=== PATIENT | female | born 1950 | race Caucasian/White ===

== ENCOUNTER → 2017-05-14 | Outpatient (CLI) | payer BC, MEDICARE ==
--- NOTE | 2017-05-14 11:02 | MM ---
Reason for exam: clinical finding. Last mammogram was performed 2 years and 5 months ago. History: Patient is postmenopausal. Family history of breast cancer in maternal aunt. Took hormonal contraceptives for 10 years. Physical Findings: Nurse did not find any significant physical abnormalities on exam. MG 3D Diag Mammo W/Cad NICOLAS Bilateral CC and MLO view(s) were taken. Prior study comparison: December 06, 2014, bilateral MG screening mammo w CAD. June 01, 2013, bilateral digital screening mammo w/CAD. The breast tissue is heterogeneously dense. This may lower the sensitivity of mammography. Stable benign calcifications. There is chronic nodularity bilaterally. There is no dominant lesion. No significant new findings when compared with previous films. These results were verbally communicated with the patient and result sheet given to the patient on 05/14/17. ASSESSMENT: Benign, BI-RAD 2 RECOMMENDATION: Routine screening mammogram of both breasts in 1 year. Manage patient on a clinical basis.
== END | disposition home or self-care (01) ==
LOC: RADMAMWWP 09:58
PROVIDERS: ATTEND Obstetrics & Gynecology
DX: N64.4 Mastodynia (principal)
CPT/HCPCS: G0204; G0279

== ENCOUNTER → 2019-01-29 | Outpatient (CLI) | payer MEDICARE ==
--- NOTE | 2019-01-29 17:25 | US ---
EXAMINATION TYPE: US kidneys/renal and bladder DATE OF EXAM: 01/29/2019 COMPARISON: NONE CLINICAL HISTORY: R31.21 Microscopic hematuria. Hematuria EXAM MEASUREMENTS: Right Kidney: 11.0 x 5.1 x 5.0 cm Left Kidney: 11.9 x 6.3 x 4.5 cm Right Kidney: no hydronephrosis or masses seen Left Kidney: no hydronephrosis or masses seen Bladder: wnl Bilateral Jets seen: no There is no evidence for hydronephrosis at this point in time. No nephrolithiasis is seen. No deshawn s are identified. The urinary bladder is anechoic. Bilateral ureteral jets are not seen. IMPRESSION: No hydronephrosis or nephrolithiasis. Focal renal masses seen.
== END | disposition home or self-care (01) ==
LOC: RADUSWWP 15:10
PROVIDERS: ATTEND Family Medicine
DX: R31.21 Asymptomatic microscopic hematuria (principal)
CPT/HCPCS: 76770

== ENCOUNTER 2020-10-22 18:18 | Inpatient (IN) | payer MEDICARE ==
--- NOTE | 2020-10-22 18:58 | ED ---
General Adult HPI - General Chief complaint: Shortness of Breath Stated complaint: Low oxygen, elevated heart rate, from [facility] Time Seen by Provider: 10/22/20 18:42 Source: patient Mode of arrival: wheelchair Limitations: no limitations - History of Present Illness Initial comments: Dictation was produced using [employer] dictation software. please excuse any grammatical, word or spelling errors. This patient was cared for during a federal and state declared state of emergency secondary to Covid 19 Chief Complaint: 69-year-old female redirected from [facility] for hypoxia History of Present Illness: Patient is a 69-year-old female she presents to us with hypoxia from the [facility] breast. Patient states that she was at the [employer] [facility] in order to get a Covid testicle back to [place] where her resides. Patient states she's been short of breath for the last week or so. She states that she's been having swelling in her lower legs. She does feel slightly worse with lying flat. She does complain of some mild cough. She states she has COPD but she does not know how severe patient does not wear any home O2. She has had some chills but no fevers or other constitutional symptoms. Denies any history of cardiac disease. She had noted some swelling in her bilateral lower extremities worse on the right compared to the left The ROS documented in this emergency department record has been reviewed and confirmed by me. Those systems with pertinent positive or negative responses have been documented in the HPI. All other systems are other negative and/or noncontributory. PHYSICAL EXAM: General Impression: Alert and oriented x3, not in acute distress HEENT: Normocephalic atraumatic, extra-ocular movements intact, pupils equal and reactive to light bilaterally, mucous membranes moist. Cardiovascular: Heart regular rate and rhythm Chest: Able to complete full sentences, no retractions, no tachypnea, diffuse lung crackles with auscultation of the lungs Abdomen: abdomen soft, non-tender, non-distended, no organomegaly Musculoskeletal: Pulses present and equal in all extremities, 2+ pitting edema to bilateral lower extremities Motor: no focal deficits noted Neurological: CN II-XII grossly intact, no focal motor or sensory deficits noted Skin: Intact with no visualized rashes Psych: Normal affect and mood ED course: 69-year-old female with hypoxia. Vital signs upon arrival shows 80% on room air, rest of vital signs within acceptable limits. . Laboratory evaluation obtained. CBC is 11 7.2. No leukocytosis. Coag panel is negative. D-dimer shows level of 0.43. A care blood gas shows pCO2 of 65 with 86% pO2 on 3 L nasal cannula. Patient is retaining CO2 likely from undiagnosed COPD. Metabolic panel is unremarkable. Coronavirus test is negative. Patient persistently hypoxic at bedside. CT angios the chest was obtained showing mild pericardial effusion with no evidence of PE. Mild interstitial infiltrate at the lung bases. Clinical presentation is suspicious for pneumonia and she is given azithromycin and ceftriaxone. Patient be continued on oxygen therapy. Patient will be admitted. Case discussed with Dr. Valentin who is willing to accept patients care. Pulmonology been consulted. EKG interpretation: Ventricular rate 90, normal sinus rhythm, SD interval 150, QRS 70, QTC 426. No SD prolongation, no QTC prolongation, no ST or T-wave changes noted. No old EKG for comparison Overall, this EKG is unremarkable - Related Data Home Medications Medication Instructions Recorded Confirmed Cetirizine HCl [Zyrtec] 10 mg PO PC-SUPPER 10/22/20 10/22/20 Allergies Allergy/AdvReac Type Severity Reaction Status Date / Time aspirin Allergy Anaphylaxis Verified 10/22/20 20:28 Review of Systems ROS Statement: Those systems with pertinent positive or pertinent negative responses have been documented in the HPI. ROS Other: All systems not noted in ROS Statement are negative. Past Medical History Past Medical History: No Reported History History of Any Multi-Drug Resistant Organisms: None Reported Past Surgical History: Appendectomy, Cholecystectomy, Orthopedic Surgery Past Psychological History: No Psychological Hx Reported Smoking Status: Former smoker Past Alcohol Use History: None Reported Past Drug Use History: None Reported General Exam Limitations: no limitations Course Vital Signs 10/22/20 10/22/20 10/22/20 18:35 19:20 19:30 Temperature 98.4 F Pulse Rate 99 91 90 Respiratory 16 32 H 20 Rate Blood Pressure 153/85 140/80 147/86 O2 Sat by Pulse 88 L 97 100 Oximetry 10/22/20 10/22/20 10/22/20 19:40 19:42 20:00 Temperature Pulse Rate 87 84 Respiratory 24 20 22 Rate Blood Pressure 147/86 146/90 O2 Sat by Pulse 100 100 Oximetry 10/22/20 21:34 Temperature Pulse Rate 89 Respiratory 20 Rate Blood Pressure 139/77 O2 Sat by Pulse 99 Oximetry Medical Decision Making - Lab Data Result diagrams: 10/22/20 19:06 10/22/20 19:06 Lab Results 10/22/20 10/22/20 10/22/20 Range/Units 19:06 19:06 19:06 WBC 8.3 (3.8-10.6) k/uL RBC 5.46 H (3.80-5.40) m/uL Hgb 17.2 H (11.4-16.0) gm/dL Hct 52.4 H (34.0-46.0) % MCV 95.9 (80.0-100.0) fL MCH 31.4 (25.0-35.0) pg MCHC 32.8 (31.0-37.0) g/dL RDW 12.9 (11.5-15.5) % Plt Count 271 (150-450) k/uL MPV 7.5 Neutrophils % 62 % Lymphocytes % 28 % Monocytes % 7 % Eosinophils % 2 % Basophils % 1 % Neutrophils # 5.1 (1.3-7.7) k/uL Lymphocytes # 2.3 (1.0-4.8) k/uL Monocytes # 0.5 (0-1.0) k/uL Eosinophils # 0.2 (0-0.7) k/uL Basophils # 0.0 (0-0.2) k/uL PT 11.4 (9.0-12.0) sec INR 1.1 (<1.2) APTT 24.0 (22.0-30.0) sec D-Dimer 0.43 (<0.60) mg/L FEU Sample Site ABG pH (7.35-7.45) ABG pCO2 (35-45) mmHg ABG pO2 (83-108) mmHg ABG HCO3 (21-25) mmol/L ABG Total CO2 (19-24) mmol/L ABG O2 Saturation (94-97) % ABG Base Excess mmol/L Olegario Test VBG pH (7.31-7.41) VBG pCO2 (37-51) mmHg VBG HCO3 (24-28) mmol/L FiO2 % Sodium 138 (137-145) mmol/L Potassium 4.8 (3.5-5.1) mmol/L Chloride 95 L (98-107) mmol/L Carbon Dioxide 35 H (22-30) mmol/L Anion Gap 8 mmol/L BUN 11 (7-17) mg/dL Creatinine 0.35 L (0.52-1.04) mg/dL Est GFR (CKD-EPI)AfAm >90 (>60 ml/min/1.73 sqM) Est GFR (CKD-EPI)NonAf >90 (>60 ml/min/1.73 sqM) Glucose 108 H (74-99) mg/dL Plasma Lactic Acid Harlan (0.7-2.0) mmol/L Calcium 9.2 (8.4-10.2) mg/dL Magnesium 2.0 (1.6-2.3) mg/dL Total Bilirubin 1.0 (0.2-1.3) mg/dL AST 38 H (14-36) U/L ALT 28 (4-34) U/L Alkaline Phosphatase 99 (38-126) U/L Troponin I (0.000-0.034) ng/mL NT-Pro-B Natriuret Pep pg/mL Total Protein 7.5 (6.3-8.2) g/dL Albumin 4.4 (3.5-5.0) g/dL Coronavirus (PCR) (Not Detectd) 10/22/20 10/22/20 10/22/20 Range/Units 19:06 19:06 19:06 WBC (3.8-10.6) k/uL RBC (3.80-5.40) m/uL Hgb (11.4-16.0) gm/dL Hct (34.0-46.0) % MCV (80.0-100.0) fL MCH (25.0-35.0) pg MCHC (31.0-37.0) g/dL RDW (11.5-15.5) % Plt Count (150-450) k/uL MPV Neutrophils % % Lymphocytes % % Monocytes % % Eosinophils % % Basophils % % Neutrophils # (1.3-7.7) k/uL Lymphocytes # (1.0-4.8) k/uL Monocytes # (0-1.0) k/uL Eosinophils # (0-0.7) k/uL Basophils # (0-0.2) k/uL PT (9.0-12.0) sec INR (<1.2) APTT (22.0-30.0) sec D-Dimer (<0.60) mg/L FEU Sample Site ABG pH (7.35-7.45) ABG pCO2 (35-45) mmHg ABG pO2 (83-108) mmHg ABG HCO3 (21-25) mmol/L ABG Total CO2 (19-24) mmol/L ABG O2 Saturation (94-97) % ABG Base Excess mmol/L Olegario Test VBG pH (7.31-7.41) VBG pCO2 (37-51) mmHg VBG HCO3 (24-28) mmol/L FiO2 % Sodium (137-145) mmol/L Potassium (3.5-5.1) mmol/L Chloride (98-107) mmol/L Carbon Dioxide (22-30) mmol/L Anion Gap mmol/L BUN (7-17) mg/dL Creatinine (0.52-1.04) mg/dL Est GFR (CKD-EPI)AfAm (>60 ml/min/1.73 sqM) Est GFR (CKD-EPI)NonAf (>60 ml/min/1.73 sqM) Glucose (74-99) mg/dL Plasma Lactic Acid Harlan 1.3 (0.7-2.0) mmol/L Calcium (8.4-10.2) mg/dL Magnesium (1.6-2.3) mg/dL Total Bilirubin (0.2-1.3) mg/dL AST (14-36) U/L ALT (4-34) U/L Alkaline Phosphatase (38-126) U/L Troponin I <0.012 (0.000-0.034) ng/mL NT-Pro-B Natriuret Pep 65 pg/mL Total Protein (6.3-8.2) g/dL Albumin (3.5-5.0) g/dL Coronavirus (PCR) (Not Detectd) 10/22/20 10/22/20 10/22/20 Range/Units 19:41 19:41 21:00 WBC (3.8-10.6) k/uL RBC (3.80-5.40) m/uL Hgb (11.4-16.0) gm/dL Hct (34.0-46.0) % MCV (80.0-100.0) fL MCH (25.0-35.0) pg MCHC (31.0-37.0) g/dL RDW (11.5-15.5) % Plt Count (150-450) k/uL MPV Neutrophils % % Lymphocytes % % Monocytes % % Eosinophils % % Basophils % % Neutrophils # (1.3-7.7) k/uL Lymphocytes # (1.0-4.8) k/uL Monocytes # (0-1.0) k/uL Eosinophils # (0-0.7) k/uL Basophils # (0-0.2) k/uL PT (9.0-12.0) sec INR (<1.2) APTT (22.0-30.0) sec D-Dimer (<0.60) mg/L FEU Sample Site Left Radial ABG pH 7.37 (7.35-7.45) ABG pCO2 65 H (35-45) mmHg ABG pO2 86 (83-108) mmHg ABG HCO3 37 H (21-25) mmol/L ABG Total CO2 39 H (19-24) mmol/L ABG O2 Saturation 96.0 (94-97) % ABG Base Excess 11.9 mmol/L Olegario Test Yes VBG pH 7.40 (7.31-7.41) VBG pCO2 54 H (37-51) mmHg VBG HCO3 33 H (24-28) mmol/L FiO2 32 % Sodium (137-145) mmol/L Potassium (3.5-5.1) mmol/L Chloride (98-107) mmol/L Carbon Dioxide (22-30) mmol/L Anion Gap mmol/L BUN (7-17) mg/dL Creatinine (0.52-1.04) mg/dL Est GFR (CKD-EPI)AfAm (>60 ml/min/1.73 sqM) Est GFR (CKD-EPI)NonAf (>60 ml/min/1.73 sqM) Glucose (74-99) mg/dL Plasma Lactic Acid Harlan (0.7-2.0) mmol/L Calcium (8.4-10.2) mg/dL Magnesium (1.6-2.3) mg/dL Total Bilirubin (0.2-1.3) mg/dL AST (14-36) U/L ALT (4-34) U/L Alkaline Phosphatase (38-126) U/L Troponin I (0.000-0.034) ng/mL NT-Pro-B Natriuret Pep pg/mL Total Protein (6.3-8.2) g/dL Albumin (3.5-5.0) g/dL Coronavirus (PCR) Not Detected (Not Detectd) Disposition Clinical Impression: Acute respiratory failure with hypoxia Disposition: ADMITTED IP TO THIS HOSP Condition: Fair Referrals: Michael De La Fuente MD [Primary Care Provider] - 1-2 days Decision Time: 22:09
[2020-10-22 19:24] LABS: Basophils % (A) 1 %; Eosinophils # (A) 0.2 k/uL (0-0.7); Eosinophils % (A) 2 %; HCT 52.4 % (34.0-46.0); HGB 17.2 gm/dL (11.4-16.0); Lymphocytes # (A) 2.3 k/uL (1.0-4.8); Lymphocytes % (A) 28 %; MCH 31.4 pg (25.0-35.0); MCHC 32.8 g/dL (31.0-37.0); MCV 95.9 fL (80.0-100.0); Mean Platelet Volume 7.5; Monocytes # (A) 0.5 k/uL (0-1.0); Monocytes % (A) 7 %; Neutrophils # (A) 5.1 k/uL (1.3-7.7); Neutrophils % (A) 62 %; Platelet Count 271 k/uL (150-450); RBC 5.46 m/uL (3.80-5.40); RDW 12.9 % (11.5-15.5); WBC 8.3 k/uL (3.8-10.6)
--- NOTE | 2020-10-22 19:25 | XR ---
EXAMINATION TYPE: XR chest 1V portable DATE OF EXAM: 10/22/2020 COMPARISON: NONE HISTORY: Short of breath TECHNIQUE: Single view FINDINGS: Heart is enlarged. There is no gross heart failure. There is some atelectasis in the left m idlung. There is no definite pleural effusion. There are chest leads. IMPRESSION: Mild atelectasis in the left midlung.
[2020-10-22 19:41] LABS: ALT 28 U/L (4-34); AST 38 U/L (14-36); African American GFR (CKD) >90 (>60 ml/min/1.73 sqM); Albumin 4.4 g/dL (3.5-5.0); Alkaline Phosphatase 99 U/L (38-126); Anion Gap 8 mmol/L; Blood Urea Nitrogen 11 mg/dL (7-17); Calcium 9.2 mg/dL (8.4-10.2); Carbon Dioxide 35 mmol/L (22-30); Chloride 95 mmol/L (98-107); Glucose 108 mg/dL (74-99); Non-African American GFR(CKD) >90 (>60 ml/min/1.73 sqM); Potassium 4.8 mmol/L (3.5-5.1); Sodium 138 mmol/L (137-145); Total Protein 7.5 g/dL (6.3-8.2)
[2020-10-22 19:51] LABS: INR 1.1 (<1.2); Prothrombin Time 11.4 sec (9.0-12.0)
[2020-10-22 20:20] LABS: VBG PH 7.4 (7.31-7.41)
[2020-10-22 21:10] LABS: ABG Base Excess 11.9 mmol/L; ABG HCO3 37 mmol/L (21-25); ABG PCO2 65 mmHg (35-45); ABG PH 7.37 (7.35-7.45); ABG PO2 86 mmHg (83-108); ABG TCO2 39 mmol/L (19-24); Allen Test Performed? Yes
--- NOTE | 2020-10-22 22:01 | CT ---
EXAMINATION TYPE: CT angio chest DATE OF EXAM: 10/22/2020 COMPARISON: None HISTORY: Elevated d-dimer. Low O2 saturations. CT DLP: 636.8 mGycm Automated exposure control for dose reduction was used. CONTRAST: Performed with IV Contrast, patient injected with 100 mL of Isovue 370. There are 3-D post processed images. There is no mediastinal adenopathy. Thoracic aorta is intact. There is no aneurysm or dissection. Hea rt is enlarged. There is mild pericardial effusion. There is some mild atelectasis at the lung bases. There are no hilar masses. There is normal contrast opacification of the pulmonary arteries. There ar e no filling defects. There is spurring in the thoracic spine. Sternum is intact. IMPRESSION: Mild pericardial effusion. No evidence of pulmonary embolism. Mild interstitial infiltrate and atelectasis at the lung bases. Cardiomegaly.
[2020-10-22] MEDS ORDERED: AZITHROMYCIN 500 MG in SODIUM CHLORIDE 0.9% 250 ML IVPB STA (22:02)
[2020-10-22] MEDS ORDERED: cefTRIAXone IN SWFI 1,000 MG/10 ML SYRINGE IVP STA (22:02)
[2020-10-22] MEDS ORDERED: ACETAMINOPHEN TAB 325 MG TAB PO PRN (22:05)
[2020-10-22] MEDS ORDERED: NALOXONE 0.4 MG/ML 1 ML VIAL IV PRN (22:05)
[2020-10-22] MEDS ORDERED: IPRATROPIUM-ALBUTEROL 3 ML NEB INHALATION STA (22:09)
[2020-10-22] MEDS ORDERED: DEXAMETHASONE SOD PHOSPHATE 10 MG/ML 1 ML VIAL IV STA (22:10)
[2020-10-22] MEDS: SODIUM CHLORIDE 0.9% 1,000 ML IV SCH (22:51)
[2020-10-23] MEDS: HEPARIN SODIUM,PORCINE 5,000 UNIT/ML 1 ML VIAL SQ SCH ×3 (00:50→17:36)
[2020-10-23] MEDS ORDERED: IPRATROPIUM-ALBUTEROL 3 ML NEB INHALATION PRN (01:22)
--- NOTE | 2020-10-23 01:24 | P.HPIM ---
History of Present Illness H&P Date: 10/23/20 The patient is a 69-year-old female with no known PMH who had presented to the emergency room due to hypoxia. The patient notes that she was at a site to undergo Covid 19 testing when they checked SpO2 and found it to be high 70s to low 80s. The patient was undergoing Covid 19 testing to travel to [place]. She notes that over the past several months, she has noticed gradually worsening dyspnea on exertion. She also notes that her PMD suspected that she may have COPD but she never underwent formal PFT testing. She reports the 45 year history of half pack per day smoking though she quit 5 years ago. She reports a mild chronic nonproductive cough along with long-standing intermittent right lower extremity edema. She reports in a recliner for the past several years as she feels short of breath if she lays flat. She denied leg pain. She denied additional complaints. She denied chest discomfort, nausea, vomiting, diaphoresis, abdominal pain, fever, chills, or diarrhea. She denied any cardiac history. She routinely follows with her PMD and was last seen a year and a half ago. Upon arrival to the emergency room, the patient was hypoxic to 88% on room air, with BP 150/85, temp 98.4, and pulse 99. Chest CTA revealed cardiomegaly with a mild pericardial effusion. EKG revealed normal sinus rhythm at 98 bpm with T-wave inversions in lead V1 and V2. Laboratory evaluation was remarkable for hemoglobin of 17.2, ABG pCO2 of 65, chloride 95, CO2 35, creatinine 0.35, lactic acid 1.3, troponin less than 0.012, proBNP 65, and a coronavirus PCR negative. Review of Systems Pertinent positives and negatives as discussed in HPI, a complete review of systems was performed and all other systems are negative. Past Medical History Past Medical History: No Reported History History of Any Multi-Drug Resistant Organisms: None Reported Past Surgical History: Appendectomy, Cholecystectomy, Orthopedic Surgery Past Psychological History: No Psychological Hx Reported Smoking Status: Former smoker Past Alcohol Use History: None Reported Past Drug Use History: None Reported - Past Family History Father History Unknown: Yes Additional Family Medical History / Comment(s): Mi at 61 yo Mother Additional Family Medical History / Comment(s): CHF, [place] past away at 75. DM type 2. mothers sister had breast cancer Medications and Allergies Home Medications Medication Instructions Recorded Confirmed Type Cetirizine HCl [Zyrtec] 10 mg PO PC-SUPPER 10/22/20 10/22/20 History Allergies Allergy/AdvReac Type Severity Reaction Status Date / Time aspirin Allergy Anaphylaxis Verified 10/22/20 20:28 Physical Exam Vitals: Vital Signs Temp Pulse Resp BP Pulse Ox 10/23/20 00:00 88 10/22/20 23:54 92 10/22/20 22:54 90 20 142/79 97 10/22/20 21:34 89 20 139/77 99 10/22/20 20:00 84 22 146/90 100 10/22/20 19:42 20 10/22/20 19:40 87 24 147/86 100 10/22/20 19:30 90 20 147/86 100 10/22/20 19:20 91 32 H 140/80 97 10/22/20 18:35 98.4 F 99 16 153/85 88 L Intake and Output 10/22/20 10/22/20 10/23/20 14:59 22:59 06:59 Other: Weight 104.326 kg General: non toxic, no distress, appears at stated age, morbidly obese Derm: no unusual rashes/lesions no unusual ecchymoses, warm, dry Head: atraumatic, normocephalic, symmetric Eyes: EOMI, no lid lag, anicteric sclera, pupils equal round reactive to light ENT: Nose and ears atraumatic, no thrush, no pharyngeal erythema Neck: No thyromegaly, no cervical lymphadenopathy, trachea midline, supple Mouth: no lip lesion, mucus membranes moist Cardiovascular: S1S2 reg, no murmur, positive posterior tibial pulse bilateral, right lower extremity 1+ edema to knees with chronic venous stasis changes and some overlying erythema, capillary refill less than 2 seconds Lungs: Bibasilar rales noted, no wheezing or rhonchi appreciated, no accessory muscle use Abdominal: soft, nontender to palpation, no guarding, no appreciable organomegaly, normal bowel sounds Ext: no gross muscle atrophy, muscle strength 5 out of 5 in all 4 extremities grossly, no contractures, Neuro: CN II-XI grossly intact, light touch intact all 4 extremities, finger to nose within normal limits, Psych: Alert, oriented, appropriate affect Results CBC & Chem 7: 10/22/20 19:06 10/22/20 19:06 Labs: Abnormal Lab Results - Last 24 Hours (Table) 10/22/20 10/22/20 10/22/20 Range/Units 19:06 19:06 19:41 RBC 5.46 H (3.80-5.40) m/uL Hgb 17.2 H (11.4-16.0) gm/dL Hct 52.4 H (34.0-46.0) % ABG pCO2 (35-45) mmHg ABG HCO3 (21-25) mmol/L ABG Total CO2 (19-24) mmol/L VBG pCO2 54 H (37-51) mmHg VBG HCO3 33 H (24-28) mmol/L Chloride 95 L (98-107) mmol/L Carbon Dioxide 35 H (22-30) mmol/L Creatinine 0.35 L (0.52-1.04) mg/dL Glucose 108 H (74-99) mg/dL AST 38 H (14-36) U/L 10/22/20 Range/Units 21:00 RBC (3.80-5.40) m/uL Hgb (11.4-16.0) gm/dL Hct (34.0-46.0) % ABG pCO2 65 H (35-45) mmHg ABG HCO3 37 H (21-25) mmol/L ABG Total CO2 39 H (19-24) mmol/L VBG pCO2 (37-51) mmHg VBG HCO3 (24-28) mmol/L Chloride (98-107) mmol/L Carbon Dioxide (22-30) mmol/L Creatinine (0.52-1.04) mg/dL Glucose (74-99) mg/dL AST (14-36) U/L Assessment and Plan Plan: Hypoxia and shortness of breath, likely multifactorial with COPD versus undiagnosed CHF -Obtain echocardiogram -Breathing treatments for now -Pulmonary consulted -Supplemental oxygen -BiPAP at night due to hypercapnia Right lower extremity edema -Obtain duplex Polycythemia -Likely secondary to chronic hypoxia -Continue with above treatment Metabolic alkalosis, likely compensatory secondary to chronic hypercapnia -BiPAP at night for now DVT prophylaxis -Heparin subq The patient is admitted with an anticipated greater than 2 midnight stay for evaluation of SOB CODE STATUS: Full Code Discussed with: patient Anticipated discharge date: 2-[address]: home A total of 35 minutes was spent on the care of this complex patient more than 50 % of the time was spent in counseling and care coordination.
[2020-10-23] MEDS: IPRATROPIUM-ALBUTEROL 3 ML NEB INHALATION SCH ×4 (07:21→19:24)
--- NOTE | 2020-10-23 08:49 | US ---
EXAMINATION TYPE: US venous doppler duplex LE DATE OF EXAM: 10/23/2020 7:51 AM COMPARISON: NONE CLINICAL HISTORY: Edema. SOB. SIDE PERFORMED: Bilateral TECHNIQUE: The lower extremity deep venous system is examined utilizing real time linear array sonog jayne with graded compression, doppler sonography and color-flow sonography. VESSELS IMAGED: Common Femoral Vein Deep Femoral Vein Greater Saphenous Vein * Femoral Vein Popliteal Vein Small Saphenous Vein * Proximal Calf Veins (* superficial vessels) Right Leg: Negative for DVT Left Leg: Negative for DVT Grayscale, color doppler, spectral doppler imaging performed of the deep veins of the bilateral lower extremities. There is normal flow, compressibility, vascular waveforms. IMPRESSION: No ultrasound evidence for acute DVT in either lower extremity.
[2020-10-23 09:51] LABS: HCT 49.1 % (37.2-46.3); HGB 15.8 g/dL (12.0-15.0); MCH 31.5 pg (27.0-32.0); MCHC 32.2 g/dL (32.0-37.0); MCV 97.8 fL (80.0-97.0); Mean Platelet Volume 10.6 fL (9.5-12.2); Platelet Count 258 X 10*3/uL (140-440); RBC 5.02 X 10*6/uL (4.10-5.20); RDW 12.9 % (11.5-14.5); WBC 8.39 X 10*3/uL (4.50-10.00)
[2020-10-23 09:53] LABS: African American GFR (CKD) 115.3 (60.0-200.0); Anion Gap 4.5 mmol/L (4.00-12.00); Calcium 9.2 mg/dL (8.7-10.3); Carbon Dioxide 34.5 mmol/L (21.6-31.8); Non-African American GFR(CKD) 99.4 (60.0-200.0); Potassium 4.6 mmol/L (3.5-5.5)
[2020-10-23] MEDS: SODIUM CHLORIDE 0.9% 1,000 ML IV SCH (10:43)
--- NOTE | 2020-10-23 12:20 | P.PN ---
Subjective Progress Note Date: 10/23/20 Patient is doing well today. She was up walking to the bathroom when I saw her. She denies any shortness of breath or dyspnea. No cough. No fevers or chills. Objective - Vital Signs Vital signs: Vital Signs Temp 98 F 10/23/20 08:00 Pulse 80 10/23/20 11:13 Resp 16 10/23/20 11:13 BP 111/59 10/23/20 08:00 Pulse Ox 96 10/23/20 08:00 Intake & Output 10/22/20 10/23/20 10/23/20 18:59 06:59 18:59 Weight 104.326 kg 104.326 kg Other: Voiding Method Toilet - Exam General: The patient is awake and alert, in no distress Eye: there is normal conjunctiva bilaterally. Neck: The neck is supple, there is no JVD. Cardiovascular: Normal S1-S2, no S3-S4, no murmurs. Respiratory: Lungs slightly diminished with no end expiratory wheezing Gastrointestinal: Abdomen is soft, nontender Musculoskeletal: There is no pedal edema. Neurological:. Speech is normal. Skin: Skin is warm and dry - Labs CBC & Chem 7: 10/23/20 06:03 10/23/20 06:03 Labs: Abnormal Lab Results - Last 24 Hours (Table) 10/22/20 10/22/20 10/22/20 Range/Units 19:06 19:06 19:41 RBC 5.46 H (3.80-5.40) m/uL Hgb 17.2 H (11.4-16.0) gm/dL Hct 52.4 H (34.0-46.0) % MCV (80.0-97.0) fL ABG pCO2 (35-45) mmHg ABG HCO3 (21-25) mmol/L ABG Total CO2 (19-24) mmol/L VBG pCO2 54 H (37-51) mmHg VBG HCO3 33 H (24-28) mmol/L Chloride 95 L (98-107) mmol/L Carbon Dioxide 35 H (22-30) mmol/L Creatinine 0.35 L (0.52-1.04) mg/dL Glucose 108 H (74-99) mg/dL AST 38 H (14-36) U/L 10/22/20 10/23/20 10/23/20 Range/Units 21:00 06:03 06:03 RBC (3.80-5.40) m/uL Hgb 15.8 H (11.4-16.0) gm/dL Hct 49.1 H (34.0-46.0) % MCV 97.8 H (80.0-97.0) fL ABG pCO2 65 H (35-45) mmHg ABG HCO3 37 H (21-25) mmol/L ABG Total CO2 39 H (19-24) mmol/L VBG pCO2 (37-51) mmHg VBG HCO3 (24-28) mmol/L Chloride (98-107) mmol/L Carbon Dioxide 34.5 H (22-30) mmol/L Creatinine 0.5 L (0.52-1.04) mg/dL Glucose 139 H (74-99) mg/dL AST (14-36) U/L Assessment and Plan Assessment: This is a 69-year-old female with no significant past medical history who presented to the emergency room with incidental finding of hypoxia while she was getting a COVID-19 screening test for travel purposes. O2 sats initially in the low 80s on room air. Patient was evaluated in the ER and admitted to the hospital for further management of her medical problems noted below. 1. Acute hypoxic respiratory failure, maybe attributed to underlying COPD and long history of cigarette smoke. Patient quit smoking [address] angiogram the ER showed no evidence of PE. Bilateral atelectasis may be contributing to her hypoxia. Incentive spirometer at bedside to be used every hour. Continue duo nebs every 6 hours. Echocardiogram with contrast to rule out intracardiac shunt. Pulmonology consulted for further evaluation. 2. Chronic hypercapnic respiratory failure noted on blood gas: with suspected obesity hypoventilation syndrome and obstructive sleep apnea, patient would benefit from sleep study as an outpatient 3. Right lower extremity edema: May be venous insufficiency. Ultrasound showed no evidence of DVT. 4. DVT prophylaxis with subcu heparin
--- NOTE | 2020-10-23 14:35 | P.CNPUL ---
History of Present Illness Consult date: 10/23/20 Requesting physician: Stanley Valentin Reason for consult: dyspnea Chief complaint: Shortness of breath History of present illness: This is a very pleasant 69-year-old female patient who follows with Dr. dany Alonso as her primary care provider. She has no significant past medical history. Suspect some underlying chronic obstructive pulmonary disease from previous chronic tobacco dependence. She was here visiting the [facility] and was needing to go back to [place] to be with her . She went to [facility] [facility] for a CoVID 19 test that was required prior to crossing the border. Results of which are unknown. While she was there they found her to be short of breath with O2 saturation 88% and recommended to be seen here in the emergency room. Chest x-ray revealed mild atelectasis of the left midlung. CAT scan of the chest revealed no evidence of pulmonary embolism. There is mild paracardial effusion. Mild interstitial infiltrate and atelectasis of the lung bases. Cardiomegaly. Leak count 8.3. Hemoglobin 15.3. D-dimer 0.43. Arterial blood gases on 32% FiO2 revealed a PaO2 of 86, pCO2 65, pH 7.37. Sodium 138. Potassium 4.6. CO2 34. Creatinine 0.5. Zaragoza virus not detected. She is seen today in consultation on the regular medical floor. She is currently sitting up at the bedside. Awake and alert in no acute distress. Denies any worsening shortness of breath, cough or congestion. No fever, chills or night sweats. 18 O2 saturations in the mid 90s on room air. She's afebrile. Hemodynamically stable. She was initiated and DuoNeb inhalations. Heparin for DVT prophylaxis. Review of Systems REVIEW OF SYSTEMS: CONSTITUTIONAL: Denies any recent significant weight loss or weight gain. EYES: Denies change in vision. EARS, NOSE, MOUTH, THROAT: Denies headaches, denies sore throat. CARDIOVASCULAR: Denies chest pain, palpitations or syncopal episodes. RESPIRATORY: Acid of for mild shortness of breath, cough, congestion no hemo ptysis. GASTROINTESTINAL: Denies change in appetite, denies abdominal pain GENITOURINARY: Denies hematuria, denies infections. MUSKULOSKELETAL: Denies pain, denies swelling. INTEGUMENTARY: Denies rash, denies eczema. NEUROLOGICAL: Denies recent memory loss, no recent seizure activity. PSYCHIATRIC: Denies anxiety, denies depression. HEMATOLOGIC/LYMPHATIC: Denies anemia, denies enlarged lymph nodes. Past Medical History Past Medical History: No Reported History Additional Past Medical History / Comment(s): Hives History of Any Multi-Drug Resistant Organisms: None Reported Past Surgical History: Appendectomy, Cholecystectomy, Orthopedic Surgery Additional Past Surgical History / Comment(s): bilateral knee replacement. cyst right hand removed. left wrist surgery Past Anesthesia/Blood Transfusion Reactions: No Reported Reaction Past Psychological History: No Psychological Hx Reported Smoking Status: Former smoker Past Alcohol Use History: None Reported Past Drug Use History: None Reported - Past Family History Father History Unknown: Yes Additional Family Medical History / Comment(s): Mi at 61 yo Mother Additional Family Medical History / Comment(s): CHF, [place] past away at 75. DM type 2. mothers sister had breast cancer Medications and Allergies Home Medications Medication Instructions Recorded Confirmed Type Cetirizine HCl [Zyrtec] 10 mg PO PC-SUPPER 10/22/20 10/22/20 History Allergies Allergy/AdvReac Type Severity Reaction Status Date / Time aspirin Allergy Anaphylaxis Verified 10/22/20 20:28 Physical Exam Vitals: Vital Signs Temp Pulse Pulse Resp BP BP Pulse Ox 10/23/20 13:55 98.3 F 98 18 131/69 92 L 10/23/20 11:13 80 16 10/23/20 11:04 81 16 10/23/20 08:00 98 F 68 19 111/59 96 10/23/20 07:30 82 16 10/23/20 07:21 81 14 93 L 10/23/20 06:45 98.3 F 79 18 137/73 93 L 10/23/20 00:00 88 10/22/20 23:54 92 10/22/20 22:54 90 20 142/79 97 10/22/20 21:34 89 20 139/77 99 10/22/20 20:00 84 22 146/90 100 10/22/20 19:42 20 10/22/20 19:40 87 24 147/86 100 10/22/20 19:30 90 20 147/86 100 10/22/20 19:20 91 32 H 140/80 97 10/22/20 18:35 98.4 F 99 16 153/85 88 L Intake and Output 10/22/20 10/23/20 10/23/20 22:59 06:59 14:59 Other: Voiding Method Toilet Weight 104.326 kg 104.326 kg GENERAL EXAM: Alert, active, pleasant 69-year-old female, on room air, comfortable in no apparent distress. HEAD: Normocephalic. EYES: Normal reaction of pupils, equal size. NOSE: Clear with pink turbinates. THROAT: No erythema or exudates. NECK: No masses, no JVD. CHEST: No chest wall deformity. LUNGS: Equal air entry with no crackles, wheeze, rhonchi or dullness. CVS: S1 and S2 normal with no audible murmur, regular rhythm. ABDOMEN: No hepatosplenomegaly, normal bowel sounds, no guarding or rigidity. SPINE: No scoliosis or deformity SKIN: No rashes CENTRAL NERVOUS SYSTEM: No focal deficits, tone is normal in all 4 extremities. EXTREMITIES: There is no peripheral edema. No clubbing, no cyanosis. Peripheral pulses are intact. Results - Laboratory Findings CBC and BMP: 10/23/20 06:03 10/23/20 06:03 ABG ABG pH 7.37 (7.35-7.45) 10/22/20 21:00 ABG pCO2 65 mmHg (35-45) H 10/22/20 21:00 ABG pO2 86 mmHg (83-108) 10/22/20 21:00 ABG O2 Saturation 96.0 % (94-97) 10/22/20 21:00 PT/INR, D-dimer PT 11.4 sec (9.0-12.0) 10/22/20 19:06 INR 1.1 (<1.2) 10/22/20 19:06 D-Dimer 0.43 mg/L FEU (<0.60) 10/22/20 19:06 Abnormal lab findings: Abnormal Labs 10/22/20 10/22/20 10/22/20 19:06 19:06 19:41 RBC 5.46 H Hgb 17.2 H Hct 52.4 H MCV ABG pCO2 ABG HCO3 ABG Total CO2 VBG pCO2 54 H VBG HCO3 33 H Chloride 95 L Carbon Dioxide 35 H Creatinine 0.35 L Glucose 108 H AST 38 H 10/22/20 10/23/20 10/23/20 21:00 06:03 06:03 RBC Hgb 15.8 H Hct 49.1 H MCV 97.8 H ABG pCO2 65 H ABG HCO3 37 H ABG Total CO2 39 H VBG pCO2 VBG HCO3 Chloride Carbon Dioxide 34.5 H Creatinine 0.5 L Glucose 139 H AST - Diagnostic Findings Chest x-ray: image reviewed CT scan - chest: image reviewed Assessment and Plan Assessment: 1 Acute exacerbation of suspected chronic obstructive pulmonary disease 2 Acute hypoxic/hypercapnic respiratory failure secondary to above 3 History of chronic tobacco dependence of approximately 40 years 4 Morbid obesity Plan: The patient was seen and evaluated by Dr. Sanders Chest x-ray, CAT scans and labs reviewed CoVID 19 screen negative Add Symbicort, prednisone taper Probable discharge in the a.m. If staying in [place], follow-up in the office in 1-2 weeks' time I, the cosigning physician, performed a history & physical examination of the patient. Lungs sounds are clear, diminished. Maintaining good O2 saturations in the 90s on room air. I discussed the assessment and plan of care with my nurse practitioner, Susan Clarke. I attest to the above consultation as dictated by her. Time with Patient: Greater than 30
[2020-10-23] MEDS: CETIRIZINE 10 MG PO SCH (17:35)
[2020-10-23] MEDS: predniSONE 10 MG TAB PO SCH (17:35)
[2020-10-23] MEDS ORDERED: LORATADINE 10 MG TAB PO SCH (18:30)
[2020-10-23] MEDS: SYMBICORT 160-4.5 MCG INHALER INHALATION SCH (19:24)
[2020-10-24] MEDS: SYMBICORT 160-4.5 MCG INHALER INHALATION SCH ×2 (07:15→19:46)
[2020-10-24] MEDS: IPRATROPIUM-ALBUTEROL 3 ML NEB INHALATION SCH ×4 (07:15→19:36)
[2020-10-24] MEDS: CETIRIZINE 10 MG PO SCH (08:16)
[2020-10-24] MEDS: predniSONE 10 MG TAB PO SCH (08:16)
[2020-10-24] MEDS: HEPARIN SODIUM,PORCINE 5,000 UNIT/ML 1 ML VIAL SQ SCH ×3 (08:16→23:47)
[2020-10-24] MEDS ORDERED: FUROSEMIDE 10 MG/ML 4 ML VIAL IV STA (12:10)
--- NOTE | 2020-10-24 12:12 | P.PN ---
Subjective Progress Note Date: 10/24/20 This is a very pleasant 69-year-old female patient who follows with Dr. dany Alonso as her primary care provider. She has no significant past medical history. Suspect some underlying chronic obstructive pulmonary disease from previous chronic tobacco dependence. She was here visiting the [place] and was needing to go back to [place] to be with her . She went to [employer] for a CoVID 19 test that was required prior to crossing the border. Results of which are unknown. While she was there they found her to be short of breath with O2 saturation 88% and recommended to be seen here in the emergency room. Chest x-ray revealed mild atelectasis of the left midlung. CAT scan of the est revealed no evidence of pulmonary embolism. There is mild paracardial effusion. Mild interstitial infiltrate and atelectasis of the lung bases. Cardiomegaly. Leak count 8.3. Hemoglobin 15.3. D-dimer 0.43. Arterial blood gases on 32% FiO2 revealed a PaO2 of 86, pCO2 65, pH 7.37. Sodium 138. Potassium 4.6. CO2 34. Creatinine 0.5. Zaragoza virus not detected. She is seen today in consultation on the regular medical floor. She is currently sitting up at the bedside. Awake and alert in no acute distress. Denies any worsening shortness of breath, cough or congestion. No fever, chills or night sweats. 18 O2 saturations in the mid 90s on room air. She's afebrile. Hemodynamically stable. She was initiated and DuoNeb inhalations. Heparin for DVT prophylaxis. On 10/24/2020 the patient is feeling better pH is less short of breath. No major chest tightness or wheezing on today's evaluation. She was treated for an acute COPD exacerbation. She states that she doesn't have any home medications of the nebulizer that she doesn't have any home oxygen. She is currently on 3 L of Oxymizer nasal cannula and her pulse ox around 90%. A CT angiogram that was done at time of admission showed mild pericardial effusion without evidence of any pulmonary embolism and there was some mild interstitial infiltrate/atelectasis in lung bases. The Doppler of the lower extremity. Back negative. Currently DVTs. The white cell count is at 8.3 and the blood gases showed a pH of 7.37 with a pCO2 of 65 and a pO2 of 86. Echocardiogram was done and the results are still pending for now. She is a chronic hypoventilatory with chronic hypoxic respiratory failure and hypercapnic respiratory failure and his serum bicarbonate was around 35 indicating chronic hypercapnic respiratory failure. Covid 19 testing came back negative. Objective - Vital Signs Vital signs: Vital Signs Temp 97.6 F 10/24/20 02:37 Pulse 100 10/24/20 11:42 Resp 18 10/24/20 07:45 BP 106/66 10/24/20 07:15 Pulse Ox 93 L 10/24/20 07:15 Intake & Output 10/23/20 10/24/20 10/24/20 18:59 06:59 18:59 Other: Voiding Method Toilet Toilet # Voids 4 - Exam GENERAL EXAM: Alert, active, pleasant 69-year-old female, on room air, comfortable in no apparent distress. HEAD: Normocephalic. EYES: Normal reaction of pupils, equal size. NOSE: Clear with pink turbinates. THROAT: No erythema or exudates. NECK: No masses, no JVD. CHEST: No chest wall deformity. LUNGS: Equal air entry with no crackles, wheeze, rhonchi or dullness. CVS: S1 and S2 normal with no audible murmur, regular rhythm. ABDOMEN: No hepatosplenomegaly, normal bowel sounds, no guarding or rigidity. SPINE: No scoliosis or deformity SKIN: No rashes CENTRAL NERVOUS SYSTEM: No focal deficits, tone is normal in all 4 extremities. EXTREMITIES: There is the patient had some increased swelling in the right lower extremity compared to the left. No clubbing, no cyanosis. Peripheral pulses are intact. - Labs CBC & Chem 7: 10/23/20 06:03 10/23/20 06:03 Assessment and Plan Plan: 1 Acute exacerbation of suspected chronic obstructive pulmonary disease. Nevertheless, based on the blood gas and presence of chronic metabolic alkalosis, writing the patient is chronic hypoxic and she has chronic hy percapnic respiratory failure. Echocardiogram will be needed to evaluate for pulmonary hypertension. The patient has chronic swelling lower extremities right more than left without evidence of any DVTs. No clear indication for pneumonia. She may have an underlying COPD as the patient is a chronic smoker. 2 Acute hypoxic/hypercapnic respiratory failure secondary to above 3 History of chronic tobacco dependence of approximately 40 years 4 Morbid obesity Plan: Lasix 40 mg IV push 1 Prednisone burst taper Symbicort acceptable as a maintenance CoVID 19 screen negative Check for the echocardiogram Evaluate for home oxygen and possible noninvasive positive pressure ventilator. I'll be glad to take care of this patient on outpatient basis once she is fully recovered. Her is living in [place] and the patient is currently living in [place]. She receives her medical care here in [place]. We'll try to coordinate this on outpatient basis. Probable discharge in the a.m.
--- NOTE | 2020-10-24 12:19 | P.PN ---
Subjective Progress Note Date: 10/24/20 Patient is doing fairly well today. She is only feeling short of breath with exertion. No acute events overnight reported by nursing staff. Objective - Vital Signs Vital signs: Vital Signs Temp 97.6 F 10/24/20 02:37 Pulse 100 10/24/20 11:42 Resp 18 10/24/20 07:45 BP 106/66 10/24/20 07:15 Pulse Ox 93 L 10/24/20 07:15 Intake & Output 10/23/20 10/24/20 10/24/20 18:59 06:59 18:59 Other: Voiding Method Toilet Toilet # Voids 4 - Exam General: The patient is awake and alert, in no distress Eye: there is normal conjunctiva bilaterally. Neck: The neck is supple, there is no JVD. Cardiovascular: Normal S1-S2, no S3-S4, no murmurs. Respiratory: Lungs slightly diminished with no end expiratory wheezing Gastrointestinal: Abdomen is soft, nontender Musculoskeletal: There is no pedal edema. Neurological:. Speech is normal. Skin: Skin is warm and dry - Labs CBC & Chem 7: 10/23/20 06:03 10/23/20 06:03 Assessment and Plan Assessment: This is a 69-year-old female with no significant past medical history who presented to the emergency room with incidental finding of hypoxia while she was getting a COVID-19 screening test for travel purposes. O2 sats initially in the low 80s on room air. Patient was evaluated in the ER and admitted to the hospital for further management of her medical problems noted below. 1. 1. Acute COPD exacerbation, started on bronchodilators and prednisone by pulmonology. Symbicort added to her regimen. 2. Acute on chronic hypoxic respiratory failure, maybe attributed to underlying COPD and long history of cigarette smoke. Patient quit smoking [address] angiogram the ER showed no evidence of PE. Bilateral atelectasis may be contributing to her hypoxia. Incentive spirometer at bedside to be used every hour. Continue duo nebs every 6 hours. Echocardiogram with contrast to rule out intracardiac shunt. Pulmonology consulted for further evaluation. 3. Chronic hypercapnic respiratory failure noted on blood gas: with suspected obesity hypoventilation syndrome and obstructive sleep apnea, patient would benefit from sleep study as an outpatient 4. Right lower extremity edema: May be venous insufficiency. Ultrasound showed no evidence of DVT. 5. DVT prophylaxis with subcu heparin Today, I'll check ambulatory O2 sats on patient myself. O2 sats at rest with 2 L of oxygen by nasal cannula around 94%. With ambulation around 91% on 2 L. O2 sat at rest on room air 91% dropping to 80% with ambulation on room air. We will set up home O2 for patient. Anticipate discharge home tomorrow.
[2020-10-24] MEDS: SODIUM CHLORIDE 0.9% 1,000 ML IV SCH (20:03)
[2020-10-25] MEDS: SYMBICORT 160-4.5 MCG INHALER INHALATION SCH (07:50)
[2020-10-25] MEDS: IPRATROPIUM-ALBUTEROL 3 ML NEB INHALATION SCH ×2 (07:50→12:13)
[2020-10-25 08:04] VITALS: BP 123/66; RESP 18; TEMP 98.1
[2020-10-25] MEDS: predniSONE 10 MG TAB PO SCH (09:17)
[2020-10-25] MEDS: HEPARIN SODIUM,PORCINE 5,000 UNIT/ML 1 ML VIAL SQ SCH (09:17)
[2020-10-25] MEDS: CETIRIZINE 10 MG PO SCH (09:18)
--- NOTE | 2020-10-25 09:32 | P.DS ---
Providers Date of admission: 10/22/20 22:05 Expected date of discharge: 10/25/20 Attending physician: Stanley Valentin MD Consults: 10/22/20 22:02 Consult Physician Routine Consulting Provider: Edison Sanders Consult Reason/Comments: hypoxia Do you want consulting provider notified?: Yes Primary care physician: Michael De La Fuente MD Hospital Course: This is a 69-year-old female with no significant past medical history who presented to the emergency room with incidental finding of hypoxia while she was getting a COVID-19 screening test for travel purposes. O2 sats initially in the low 80s on room air. Patient was evaluated in the ER and admitted to the hospital for further management of her medical problems noted below. 1. Acute COPD exacerbation, started on bronchodilators and prednisone by pulmonology. Symbicort added to her regimen. 2. Acute on chronic hypoxic respiratory failure, maybe attributed to underlying COPD and long history of cigarette smoke. Patient quit smoking [address] angiogram the ER showed no evidence of PE. Bilateral atelectasis may be contributing to her hypoxia. Incentive spirometer at bedside to be used every hour. Echocardiogram with contrast to rule out intracardiac shunt pending report. Pulmonology consulted for further evaluation. 3. Chronic hypercapnic respiratory failure noted on blood gas: with suspected obesity hypoventilation syndrome and obstructive sleep apnea, patient would benefit from sleep study as an outpatient 4. Right lower extremity edema: May be venous insufficiency. Ultrasound showed no evidence of DVT. Patient will be discharged home in a stable condition. She will continue a slow taper course prednisone as directed by pulmonology Pulmicort twice daily Home O2 set up for her She will follow-up with her primary care physician in [place] She was advised to follow-up with the sleep medicine clinic for sleep study Patient Condition at Discharge: Fair Plan - Discharge Summary Discharge Rx Participant: Yes New Discharge Prescriptions: New Budesonide-Formot 160-4.5 Mcg [Symbicort 160-4.5 Mcg Inhaler] 2 puff INHALATION BID 30 Days #1 inhaler Albuterol Inhaler [Ventolin Hfa Inhaler] 1 puff INHALATION RT-QID 30 Days #1 puff predniSONE 0 mg PO DIRECTED #18 tab Continue Cetirizine HCl [Zyrtec] 10 mg PO PC-SUPPER Discharge Medication List Cetirizine HCl [Zyrtec] 10 mg PO PC-SUPPER 10/22/20 [History] Albuterol Inhaler [Ventolin Hfa Inhaler] 1 puff INHALATION RT-QID 30 Days #1 puff 10/24/20 [Rx] Budesonide-Formot 160-4.5 Mcg [Symbicort 160-4.5 Mcg Inhaler] 2 puff INHALATION BID 30 Days #1 inhaler 10/24/20 [Rx] predniSONE 0 mg PO DIRECTED #18 tab 10/25/20 [Rx] Follow up Appointment(s)/Referral(s): [facility],Equipment [NON-STAFF] - ([facility] will deliver portable tank to bedside before discharge and a concentrator to your daughter's home after discharge. Please call them once there to arrange delivery. ) Edison Sanders DO [Doctor of Osteopathic Medicine] - 1 Week Michael De La Fuente MD [Primary Care Provider] - 1-2 days Activity/Diet/Wound Care/Special Instructions: patient's own bottle of cetirize in pharmacy. Discharge Disposition: HOME SELF-CARE
--- NOTE | 2020-10-25 09:44 | P.PN ---
Subjective Progress Note Date: 10/25/20 This is a very pleasant 69-year-old female patient who follows with Dr. dany Alonso as her primary care provider. She has no significant past medical history. Suspect some underlying chronic obstructive pulmonary disease from previous chronic tobacco dependence. She was here visiting the [place] and was needing to go back to [place] to be with her . She went to [employer] for a CoVID 19 test that was required prior to crossing the border. Results of which are unknown. While she was there they found her to be short of breath with O2 saturation 88% and recommended to be seen here in the emergency room. Chest x-ray revealed mild atelectasis of the left midlung. CAT scan of the est revealed no evidence of pulmonary embolism. There is mild paracardial effusion. Mild interstitial infiltrate and atelectasis of the lung bases. Cardiomegaly. Leak count 8.3. Hemoglobin 15.3. D-dimer 0.43. Arterial blood gases on 32% FiO2 revealed a PaO2 of 86, pCO2 65, pH 7.37. Sodium 138. Potassium 4.6. CO2 34. Creatinine 0.5. Zaragoza virus not detected. She is seen today in consultation on the regular medical floor. She is currently sitting up at the bedside. Awake and alert in no acute distress. Denies any worsening shortness of breath, cough or congestion. No fever, chills or night sweats. 18 O2 saturations in the mid 90s on room air. She's afebrile. Hemodynamically stable. She was initiated and DuoNeb inhalations. Heparin for DVT prophylaxis. On 10/24/2020 the patient is feeling better pH is less short of breath. No major chest tightness or wheezing on today's evaluation. She was treated for an acute COPD exacerbation. She states that she doesn't have any home medications of the nebulizer that she doesn't have any home oxygen. She is currently on 3 L of Oxymizer nasal cannula and her pulse ox around 90%. A CT angiogram that was done at time of admission showed mild pericardial effusion without evidence of any pulmonary embolism and there was some mild interstitial infiltrate/atelectasis in lung bases. The Doppler of the lower extremity. Back negative. Currently DVTs. The white cell count is at 8.3 and the blood gases showed a pH of 7.37 with a pCO2 of 65 and a pO2 of 86. Echocardiogram was done and the results are still pending for now. She is a chronic hypoventilatory with chronic hypoxic respiratory failure and hypercapnic respiratory failure and his serum bicarbonate was around 35 indicating chronic hypercapnic respiratory failure. Covid 19 testing came back negative. On 10/25/2020 the patient is feeling well. No major issues in terms of her breathing. She had a good night yesterday and she is currently on room air ox ygen. No chest pain. No shortness of breath. No cough or sputum production. Her blood gases at shown chronic hypercapnic respiratory failure. Awaiting the echocardiogram results. She was given Lasix yesterday and she produced adequate amount of urine output and the patient's edema is also improved. Serum bicarb is at 34 with a BUN of 9 and a creatinine of 0.5. Objective - Vital Signs Vital signs: Vital Signs Temp 98.1 F 10/25/20 08:00 Pulse 80 10/25/20 08:09 Resp 18 10/25/20 08:00 BP 123/66 10/25/20 08:00 Pulse Ox 92 L 10/25/20 08:00 Intake & Output 10/24/20 10/25/20 10/25/20 18:59 06:59 18:59 Intake Total 200 Balance 200 Intake: Oral 200 Other: Voiding Method Toilet Toilet # Voids 2 2 - Exam GENERAL EXAM: Alert, active, pleasant 69-year-old female, on room air, comfortable in no apparent distress. HEAD: Normocephalic. EYES: Normal reaction of pupils, equal size. NOSE: Clear with pink turbinates. THROAT: No erythema or exudates. NECK: No masses, no JVD. CHEST: No chest wall deformity. LUNGS: Equal air entry with no crackles, wheeze, rhonchi or dullness. CVS: S1 and S2 normal with no audible murmur, regular rhythm. ABDOMEN: No hepatosplenomegaly, normal bowel sounds, no guarding or rigidity. SPINE: No scoliosis or deformity SKIN: No rashes CENTRAL NERVOUS SYSTEM: No focal deficits, tone is normal in all 4 extremities. EXTREMITIES: There is the patient had some increased swelling in the right lower extremity compared to the left. No clubbing, no cyanosis. Peripheral pulses are intact. - Labs CBC & Chem 7: 10/23/20 06:03 10/23/20 06:03 Assessment and Plan Plan: 1 Acute exacerbation of suspected chronic obstructive pulmonary disease. Nevertheless, based on the blood gas and presence of chronic metabolic alkalosi s, writing the patient is chronic hypoxic and she has chronic hypercapnic respiratory failure. Echocardiogram will be needed to evaluate for pulmonary hypertension. The patient has chronic swelling lower extremities right more than left without evidence of any DVTs. No clear indication for pneumonia. She may have an underlying COPD as the patient is a chronic smoker. 2 Acute hypoxic/hypercapnic respiratory failure secondary to above 3 History of chronic tobacco dependence of approximately 40 years 4 Morbid obesity Plan: Lasix 40 mg IV push 1 was given yesterday with good urine output Prednisone burst taper, will be continued on outpatient basis Symbicort acceptable as a maintenance CoVID 19 screen negative Check for the echocardiogram, this was done yesterday and the patient Evaluate for home oxygen and possible noninvasive positive pressure ventilator. I'll be glad to take care of this patient on outpatient basis once she is fully recovered. Her is living in [place] and the patient is currently living in [place]. She receives her medical care here in [place]. We'll try to coordinate this on outpatient basis. Meanwhile, the patient's pulse ox at room air while at rest is noted of 88% and with activity she would easily desaturate. I'm recommending oxygen therapy at time of discharge for now. Probable discharge today. Encourage weight loss.
--- NOTE | 2020-10-25 10:51 | ECHOF ---
Referral Reason:hypoxia r/o shunt MEASUREMENTS -------- HEIGHT: 152.4 cm WEIGHT: 104.3 kg BP: RVIDd: 3.5 cm (< 3.3) IVSd: 0.8 cm (0.6 - 1.1) LVIDd: 4.2 cm (3.9 - 5.3) LVPWd: 1.1 cm (0.6 - 1.1) IVSs: 1.2 cm LVIDs: 3.1 cm LVPWs: 1.2 cm LA Diam: 3.8 cm (2.7 - 3.8) Ao Diam: 3.4 cm (2.0 - 3.7) AV Cusp: 2.1 cm (1.5 - 2.6) LA Diam: 4.1 cm (2.7 - 3.8) MV EXCURSION: 19.436 mm (> 18.000) MV EF SLOPE: 98 mm/s (70 - 150) EPSS: 0.4 cm MV E Rubin: 1.11 m/s MV DecT: 211 ms MV A Rubin: 1.30 m/s MV E/A Ratio: 0.86 RAP: 5.00 mmHg RVSP: 38.38 mmHg FINDINGS -------- Sinus rhythm. This was a technically good study. LV size, wall thickness and systolic function are normal, with an EF greater than 55%. The left heaven tricular size is normal. The right ventricle is normal in size. The left atrial size is normal. The right atrial size is normal. 5.0mg OF Lumason UTLIZED: 2 OR MORE WALL SEGMENTS NOT VISUALIZED. There is mild aortic valve sclerosis. There is no evidence of aortic regurgitation. Mild mitral annular calcification present. Mild mitral regurgitation is present. Mild tricuspid regurgitation present. There is mild pulmonary hypertension. The right ventricular systolic pressure, as measured by Doppler, is 38.38mmHg. Trace/mild (physiologic) pulmonic regurgitation. The aortic root size is normal. There is a small, generalized pericardial effusion present. CONCLUSIONS -------- 1. LV size, wall thickness and systolic function are normal, with an EF greater than 55%. 2. The left ventricular size is normal. 3. The right ventricle is normal in size. 4. The left atrial size is normal. 5. The right atrial size is normal. 6. 5.0mg OF Lumason UTLIZED: 2 OR MORE WALL SEGMENTS NOT VISUALIZED. 7. There is mild aortic valve sclerosis. 8. Mild mitral annular calcification present. 9. Mild mitral regurgitation is present. 10. Mild tricuspid regurgitation present. 11. There is mild pulmonary hypertension. 12. The right ventricular systolic pressure, as measured by Doppler, is 38.38mmHg. 13. Trace/mild (physiologic) pulmonic regurgitation. 14. The aortic root size is normal. 15. There is a small, generalized pericardial effusion present. SUPERIOR COURT JUSTICE: Brittany Hua RDCS
[2020-10-25 12:16] VITALS: PULSE 84
== END 2020-10-25 13:58 | disposition home or self-care (01) | DRG 190 ==
LOC: EC 18:18 → 4SSUR 22:05
PROVIDERS: ADMIT Internal Medicine; ATTEND Internal Medicine
DX: J44.1 Chronic obstructive pulmonary disease with (acute) exacerbation (principal); J96.22 Acute and chronic respiratory failure with hypercapnia; J96.21 Acute and chronic respiratory failure with hypoxia; Z68.42 Body mass index [BMI] 45.0-49.9, adult; J98.11 Atelectasis; E87.3 Alkalosis; I31.3 Pericardial effusion (noninflammatory); D75.1 Secondary polycythemia; E66.01 Morbid (severe) obesity due to excess calories; Z87.891 Personal history of nicotine dependence; Z20.822 Contact with and (suspected) exposure to COVID-19
CPT/HCPCS: 36415; 36600; 71045; 71275; 80048; 80053; 82803; 82805; 83605; 83735; 83880; 84484; 85025; 85027; 85379; 85610; 85730; 87635; 93005; 93306; 93970; 94640; 94760; 96365; 96375; 99285

== ENCOUNTER → 2022-07-10 | Outpatient (CLI) | payer MEDICARE ==
--- NOTE | 2022-07-11 08:45 | MM ---
Reason for Exam: Screening (asymptomatic). Last mammogram was performed 5 year(s) and 2 month(s) ago. Patient History: Menarche at age 12. First Full-Term at age 25. Postmenopausal. Patient used Hormonal Contraceptives for 10 years. Maternal aunt had breast cancer. Risk Values: [place] 5 year model risk: 1.7%. NCI Lifetime model risk: 5.0%. Prior Study Comparison: 06/01/2013 Bilateral Screening Mammogram, [facility]. 12/06/2014 Bilateral Screening Mammogram, [facility]. 05/14/2017 Bilateral Diagnostic Mammogram, [facility]. Tissue Density: The breast tissue is heterogeneously dense. This may lower the sensitivity of mammography. Findings: Analyzed By CAD. There is no suspicious group of microcalcifications or new suspicious mass in either breast. Overall Assessment: Negative, BI-RAD 1 Management: Screening Mammogram of both breasts in 1 year. A clinical breast exam by your physician is recommended on an annual basis and results should be correlated with mammographic findings. [facility] will attempt to contact patient to return for supplemental views and ultrasound if indicated. Electronically signed and approved by: Edison Vizcaino DO
== END | disposition home or self-care (01) ==
LOC: RADMAMWWP 14:32
PROVIDERS: ATTEND Family Medicine
DX: Z12.31 Encounter for screening mammogram for malignant neoplasm of breast (principal); Z78.0 Asymptomatic menopausal state; Z80.3 Family history of malignant neoplasm of breast
CPT/HCPCS: 77067